=== PATIENT | male | born 1960 | race Two or more races ===

== ENCOUNTER 2018-11-28 04:44 | Inpatient (IN) | payer OTHER ==
[~2018-11-28] VITALS: Ht 170.2 cm; Wt 91.6 kg
[2018-11-28] MEDS ORDERED: MIDAZOLAM HCL 2 MG/2ML VIAL ONE (06:07)
[2018-11-28] MEDS ORDERED: SEVOFLURANE 250 ML BOTTLE IH ONE (06:08)
[2018-11-28] MEDS ORDERED: SCOPOLAMINE HBR 1 EA PATCH.TD72 TD ONE (06:08)
[2018-11-28] MEDS ORDERED: ANESTHESIA TRAY IN PYXIS 1 EA TRAY MC ONE (06:09)
[2018-11-28] MEDS ORDERED: BUPIVACAINE 0.25% 75 MG/30 ML VIAL ONE (06:09)
[2018-11-28] MEDS ORDERED: TRANEXAMIC ACID 3,000 MG in SODIUM CHLORIDE IRRIG SOLUTION 70 ML IR ONE (07:30)
[2018-11-28] MEDS ORDERED: BACITRACIN 50000 UNITS/VIAL ONE (07:42)
--- NOTE | 2018-11-28 10:15 | NUR ---
MS/RN OPENING NOTE RECEIVED THE PATIENT IN BED FROM OR. THE PATIENT IS AWAKE. ALERT AND ORIENTED X4. DENIES PAIN AT THIS TIME. RECEIVING OXYGEN 3L/MIN VIA NASAL CANNULA AND DENIES SOB AT THIS TIME. THE PATIENT IN NO APPARENT DISTRESS. RIGHT SHOULDER WITH AN IMMOBILIZER. RADIAL PULSE PRESENT. NO S/S POOR CIRCULATION NOTED. PATIENT IS GIVEN ORIENTATION TO THE ROOM/UNIT AND HE VERBALIZED UNDERSTANDING. BED LOW AND LOCKED. SIDE RAILS UP X3. CALL LIGHT WITHIN REACH. WILL CONTINUE TO MONITOR.
--- NOTE | 2018-11-28 10:25 | NUR ---
MS/RN NOTE PAGED DR SY TO INFORM ABOUT PATIENT BEING ON THE FLOOR.
[2018-11-28] MEDS ORDERED: ONDANSETRON HCL/PF 4 MG/2 ML VIAL IVP PRN (12:00)
[2018-11-28] MEDS ORDERED: NALOXONE HCL 0.4 MG/ML AMPUL IV PRN (12:00)
[2018-11-28] MEDS ORDERED: LORAZEPAM 0.5 MG TABLET PO PRN (12:00)
[2018-11-28] MEDS ORDERED: HYDROMORPHONE INJ 2 MG/ML DISP.SYRIN SQ PRN (12:00)
[2018-11-28] MEDS ORDERED: CLONIDINE HCL 0.1 MG TABLET PO PRN (12:00)
[2018-11-28] MEDS ORDERED: MENTHOL/CETYLPYRD (CEPACOL) 1 LOZ LOZENGE MM PRN (12:00)
[2018-11-28] MEDS ORDERED: MAGNESIUM HYDROXIDE 30 ML UDC PO PRN (12:00)
[2018-11-28] MEDS ORDERED: MAG HYDROX/AL HYDROX/SIMETH 30 ML UDC PO PRN (12:00)
[2018-11-28] MEDS ORDERED: diphenhydrAMINE HCL 25 MG CAPSULE PO PRN (12:00)
[2018-11-28] MEDS ORDERED: SENNOSIDES 8.6 MG TABLET PO PRN (12:30)
[2018-11-28] MEDS ORDERED: IV D5/0.45 NACL 1,000 ML IV PRN (12:30)
[2018-11-28] MEDS ORDERED: oxyCODONE IR immediate release 5 MG PO PRN ×2 (12:30)
[2018-11-28] MEDS ORDERED: ZOLPIDEM TARTRATE 5 MG TABLET PO PRN (12:30)
[2018-11-28] MEDS ORDERED: BISACODYL SUPP (10 MG) 10 MG/SUPP.RECT SUPP.RECT RC PRN (12:30)
[2018-11-28] MEDS: TAMSULOSIN 0.4 MG CAP.SR.24H PO SCH (13:16)
[2018-11-28] MEDS ORDERED: ANCEF 1 GM/50 ML D5W IV SCH ×2 (16:00)
[2018-11-28] MEDS: CLINDAMYCIN 900 MG in IV D5W 50 ML IV SCH ×2 (16:11→23:12)
[2018-11-28] MEDS: DOCUSATE SODIUM 100 MG CAPSULE PO SCH (17:21)
--- NOTE | 2018-11-28 18:22 | NUR ---
MS/RN CLOSING NOTE THE PATIENT ALERT AND ORIENTED X4. DENIE ALEJANDRA AT THIS TIME. IN ROOM AIR AND SATURATION AT 95%. DENIES SOB AT THIS TIME. LEFT SHOULDER SLING ON. RADIAL PULSES PRESENT. NO S/S POOR CIRCULATION NOTED. LAC G 20 PATENT AND SALINE LOCKED. BED LOW AND LOCKED. SIDE RAILS UP X3. CALL LIGHT WITHIN REACH. WILL ENDORSE TO REAL ESTATE INSPECTOR.
[2018-11-28 20:00] VITALS: BP 99/66
--- NOTE | 2018-11-28 20:00 | NUR ---
MS RN NOTES RECEIVED PATIENT AWAKE IN BED AND WATCHING TV WITH NO DISTRESS NOTED. CALL LIGHT WITHIN REACH. NO C/O PAIN OR DISCOMFORT. RIGHT ARM SLING INTACT WITH GOOD CIRCULATION NOTED ON RUE. NO NEW SKIN BREAKDOWN OR DISCOLORATION NOTED. PERIPHERAL IV INTACT AND PATENT. BED IN LOW LOCK SETTING. ALL BELONGINGS KEPT NEAR BEDSIDE. WILL CONTINUE TO MONITOR.
[2018-11-28] MEDS: FAMOTIDINE (20 MG) 20 MG TABLET PO SCH (21:18)
[2018-11-29] MEDS ORDERED: oxyCODONE IR immediate release 5 MG PO ONE (06:00)
--- NOTE | 2018-11-29 06:50 | NUR ---
MS RN CLOSING NOTES PATIENT AWAKE IN BED AND WATCHING TV WITH NO DISTRESS NOTED. CALL LIGHT WITHIN REACH. ALL DUE MEDS GIVEN ORDERED WITH NO ASE NOTED. NO FURTHER C/O PAIN OR DISCOMFORT. RIGHT ARM SLING INTACT WITH GOOD CIRCULATION NOTED ON RUE. NO NEW SKIN BREAKDOWN OR DISCOLORATION NOTED. PERIPHERAL IV INTACT AND PATENT. BED IN LOW LOCK SETTING. ALL BELONGINGS KEPT NEAR BEDSIDE. WILL ENDORSE TO ONCOMING SHIFT.
[2018-11-29 07:04] LABS: BASOPHILS % (AUTO) 0.3 % (0.0-2.0); EOSINOPHILS % (AUTO) 0.6 % (0.0-6.0); HEMATOCRIT 39 % (39-51); HEMOGLOBIN 13.8 g/dL (13.5-17.5); LYMPHOCYTES # (AUTO) 2.1 /CMM (0.8-4.8); LYMPHOCYTES % (AUTO) 27.6 % (20.0-44.0); MEAN CORPUSCULAR HGB CONC 36 g/dl (31.0-36.0); MEAN CORPUSCULAR VOLUME 91 fL (80-96); MONOCYTES # (AUTO) 0.6 /CMM (0.1-1.30); MONOCYTES % (AUTO) 8.6 % (2.0-12.0); NEUTROPHILS # (AUTO) 4.7 /CMM (1.8-8.9); NEUTROPHILS % (AUTO) 62.9 % (43.0-81.0); PLATELET COUNT (AUTO) 311 /CMM (150-450); RED BLOOD CELL COUNT(AUTO) 4.25 MIL/uL (4.5-6.0); WHITE BLOOD COUNT (AUTO) 7.5 K/uL (4.3-11.0)
[2018-11-29 07:09] LABS: CALCIUM, SERUM 8.1 mg/dL (8.5-10.1); CREATININE 0.8 mg/dL (0.6-1.3); POTASSIUM 3.2 mmol/L (3.5-5.1)
[2018-11-29 08:00] VITALS: BP 107/68
--- NOTE | 2018-11-29 08:00 | NUR ---
MS RN NOTES PATIENT IN BED RESTING NO SOB OR ACUTE DISTRESS NOTED. PATIENT ALERT, ORIENTED X4 DENIES ANY PAIN. AMBULATORY. BED IN LOW LOCKED POSITION, CALL LIGHT WITHIN REACH. WILL CONTINUE TO MONITOR.
[2018-11-29] MEDS: FAMOTIDINE (20 MG) 20 MG TABLET PO SCH (08:48)
[2018-11-29] MEDS: DOCUSATE SODIUM 100 MG CAPSULE PO SCH (08:48)
[2018-11-29] MEDS ORDERED: ASPIRIN 325 MG TABLET PO SCH (09:00)
[2018-11-29] MEDS ORDERED: ASPI-992 PO (11:15)
[2018-11-29] MEDS ORDERED: PANT40TA2 PO (11:15)
[2018-11-29] MEDS ORDERED: HYDR-4384 PO (11:15)
[2018-11-29] MEDS: POTASSIUM CHLORIDE 20 MEQ TAB.PRT.SR PO SCH ×2 (11:48→13:06)
[2018-11-29] MEDS: TAMSULOSIN 0.4 MG CAP.SR.24H PO SCH (11:48)
--- NOTE | 2018-11-29 13:30 | NUR ---
MS RN NOTES PATIENT DISCHARGED HOME WITH . PATIENT ALERT, ORIENTED X4. DISCHARGE INSTRUCTIONS PROVIDED TO PATIENT VERBALIZED UNDERSTAND. PROVIDED WITH DR. LEHMAN'S OFFICE PHONE NUMBER PATIENT STATES HE HAS INFORMATION, INSTRUCTED TO FOLLOW WITH DR. LEHMAN WITHIN 1 WEEK. DISCHARGE PROTOCOL FOLLOWED. BELONGING LIST SIGNED ALL BELONGINGS ACCOUNTED FOR. PRESCRIPTION PROVIDED TO PATIENT. VERBALIZED UNDERSTANDING. PATIENT ESCORTED TO CAR. MD AWARE OF ALL ABNORMAL LABS. RIGHT SHOULDER INCISION INTACT PATIENT COVERED WITH NONE REMOVAL DRESSING. INSTRUCTED PATIENT ON INCISION CARE.
== END 2018-11-29 13:30 | disposition home or self-care (01) | DRG 483 ==
LOC: DS 04:44 → MED 09:41
PROVIDERS: ADMIT Internal Medicine; ATTEND Specialist
DX: M19.011 Primary osteoarthritis, right shoulder (principal); M75.100 Unspecified rotator cuff tear or rupture of unspecified shoulder, not specified as traumatic
CPT/HCPCS: 36415; 80048-TC; 85025-TC; 86850-TC; 87081-TC; 88305-TC; 88311-TC; A4217; A4565; A6402; C1713; G0378; J0690; J1100; J1170; J1885; J2250; J2704; J3490; J7050; J7060

== ENCOUNTER 2019-06-05 05:17 | Inpatient (IN) | payer OTHER ==
[~2019-06-05] VITALS: Ht 170.2 cm; Wt 100.9 kg
[2019-06-05] VITALS (13 sets, daily range): BP systolic 106–135; BP diastolic 63–90
[~2019-06-05 05:17] MED LIST: ASPI-992 PO; HYDR-4384 PO; PANT40TA2 PO
[2019-06-05] MEDS ORDERED: BACITRACIN 50000 UNITS/VIAL ONE (06:16)
[2019-06-05] MEDS ORDERED: ANESTHESIA TRAY IN PYXIS 1 EA TRAY MC ONE (06:16)
[2019-06-05] MEDS ORDERED: MIDAZOLAM HCL 2 MG/2ML VIAL ONE (06:19)
[2019-06-05] MEDS ORDERED: BUPIVACAINE 0.25% 75 MG/30 ML VIAL ONE (06:19)
[2019-06-05] MEDS ORDERED: SCOPOLAMINE HBR 1 EA PATCH.TD72 TD ONE (06:20)
[2019-06-05] MEDS ORDERED: FENTANYL PF 100MCG/2ML AMPUL ONE (06:20)
[2019-06-05] MEDS ORDERED: DESFLURANE 240 ML BOTTLE IH ONE (07:25)
[2019-06-05] MEDS ORDERED: TRANEXAMIC ACID 3,000 MG in SODIUM CHLORIDE IRRIG SOLUTION 70 ML IR ONE (07:30)
[2019-06-05] MEDS ORDERED: oxyCODONE IR immediate release 5 MG PO PRN ×2 (09:00→20:30)
[2019-06-05] MEDS ORDERED: HYDROCODONE/APAP 10/325MG 1 EA TABLET PO PRN (09:00)
[2019-06-05] MEDS ORDERED: HYDROMORPHONE INJ 0.5 MG/0.5 ML SYRINGE IV PRN (09:00)
[2019-06-05] MEDS ORDERED: COLACE 250 MG CAPSULE PO PRN (10:00)
[2019-06-05] MEDS ORDERED: HYDROCODONE/APAP 5/325MG 1 EACH TABLET PO PRN (10:00)
[2019-06-05] MEDS ORDERED: DULCOLAX 10 MG/SUPP.RECT RC PRN (10:00)
[2019-06-05] MEDS ORDERED: SENOKOT 8.6 MG TABLET PO PRN (10:00)
[2019-06-05] MEDS ORDERED: ZOFRAN 4mg/2ML IV PRN (10:00)
[2019-06-05] MEDS ORDERED: AMBIEN 5 MG TABLET PO PRN (10:00)
[2019-06-05] MEDS ORDERED: TYLENOL 650 MG TABLET PO PRN (10:00)
[2019-06-05] MEDS: HYDROMORPHONE 1 MG/1 ML DISP.SYRIN IV PRN (11:51)
[2019-06-05] MEDS ORDERED: BUPIVACAINE MPF W/EPI 0.25% 30 ML VIAL ONE (12:14)
[2019-06-05] MEDS: IV D5/0.45 NACL 1,000 ML IV PRN (14:37)
[2019-06-05] MEDS: ANCEF 1 G in IV D5W 50 ML IV SCH ×2 (14:40→22:58)
[2019-06-05] MEDS ORDERED: diphenhydrAMINE HCL 25 MG CAPSULE PO PRN (20:30)
[2019-06-05] MEDS ORDERED: LORAZEPAM 1 MG TABLET PO PRN (20:30)
[2019-06-05] MEDS ORDERED: MAG HYDROX/AL HYDROX/SIMETH 30 ML UDC PO PRN (20:30)
[2019-06-05] MEDS: FAMOTIDINE (20 MG) 20 MG TABLET PO SCH (21:34)
[2019-06-06] MEDS: IV D5/0.45 NACL 1,000 ML IV PRN (01:01)
[2019-06-06 07:05] LABS: HEMOGLOBIN 14.6 g/dL (13.5-17.5)
[2019-06-06 08:00] VITALS: BP 117/77
[2019-06-06] MEDS: ASPIRIN 325 MG TABLET PO SCH ×2 (08:14→16:30)
[2019-06-06] MEDS: FAMOTIDINE (20 MG) 20 MG TABLET PO SCH (08:14)
[2019-06-06] MEDS: DOCUSATE SODIUM 100 MG CAPSULE PO SCH ×2 (08:14→16:31)
[2019-06-06] MEDS: HYDROMORPHONE 1 MG/1 ML DISP.SYRIN IV PRN (08:15)
[2019-06-06 16:00] VITALS: BP 138/82
== END 2019-06-06 17:47 | disposition home or self-care (01) | DRG 483 ==
LOC: DS 05:17 → MED 05:18
PROVIDERS: ADMIT Internal Medicine; ATTEND Internal Medicine
PROC: 0LS40ZZ Reposition Left Upper Arm Tendon, Open Approach (ICD-10-PCS; principal; 2019-06-05)
PROC: 0RRK0JZ Replacement of Left Shoulder Joint with Synthetic Substitute, Open Approach (ICD-10-PCS; principal; 2019-06-05)
DX: M12.512 Traumatic arthropathy, left shoulder (principal); F41.9 Anxiety disorder, unspecified; G47.00 Insomnia, unspecified; F51.9 Sleep disorder not due to a substance or known physiological condition, unspecified; X58.XXXA Exposure to other specified factors, initial encounter; Y92.89 Other specified places as the place of occurrence of the external cause
CPT/HCPCS: 36415; 85027-TC; 87081-TC; 88305-TC; 88311-TC; A4565; A6402; C1713; G0378; J0690; J1100; J1170; J1885; J2250; J2704; J2710; J3010; J3490; J7060